=== PATIENT | female | born 1960 | race Caucasian/White ===

== ENCOUNTER 2018-11-04 11:56 | Inpatient (IN) | payer OTHER ==
[~2018-11-04] VITALS: Ht 162.6 cm; Wt 118.2 kg
--- NOTE | ~2018-11-04 | EKG ---
[place], [place] ELECTROCARDIOGRAM REPORT NAME: OSMAN BUTLER UNIT #: [id number] ROOM: 411 DOCTOR: PERLA DRAFT REPORT BIRTHDATE: [birth year] [facility] Test Date: 2018-11-04 Test Time: 12:24:00 Pat Name: OSMAN BUTLER Department: Room: 411 Gender: F Office Administrator: : 1960 Requested By: GREGORIO RAMÍREZ Order Number: [id number] Reading MD: Estrella Rausch MD Measurements Intervals [place] Rate: 73 P: -12 MN: 151 QRS: 13 QRSD: 93 T: 3 QT: 397 QTc: 438 Interpretive Statements Sinus rhythm Left ventricular hypertrophy Electronically Signed On 11-05-2018 11:30:49 PDT by Estrella Rausch MD CM:EKGRPT:ELECTROCARDIOGRAM REPORT [id number] GREGORIO ORTIZ DRAFT REPORT GREGORIO RAMÍREZ DO
[2018-11-04 11:56] VITALS: BP 131/77
[2018-11-04 12:17] LABS: BILIRUBIN NEGATIVE (NEGATIVE); BLOOD 3+ (NEGATIVE); CLARITY TURBID (CLEAR); COLOR YELLOW (YELLOW); GLUCOSE NEGATIVE (NEGATIVE); KETONE NEGATIVE (NEGATIVE); LEUKO ESTERASE 2+ (NEGATIVE); NITRITE NEGATIVE (NEGATIVE); SPECIFIC GRAVITY >= 1.030 (1.005-1.030); UROBILINOGEN 0.2 E.U./dl (0.2-1.0)
[2018-11-04 12:31] LABS: BASO % 0.2 % (0.0-1.0); EOS # 0.1 10*3/uL (0.0-0.4); HEMATOCRIT 35.6 % (37.0-47.0); HEMOGLOBIN 11.8 g/dl (12.0-16.0); LYMPH # 1.5 10*3/uL (1.3-4.4); LYMPH % 26.4 % (27.0-41.0); MEAN CELL VOLUME 92.7 fl (81.0-99.0); MEAN CORPUSCULAR HGB 30.7 pg (27.0-31.0); MEAN CORPUSCULAR HGB CONC 33.1 g/dl (33.0-37.0); MEAN PLATELET VOLUME 10.1 fl (9.6-12.3); MONO # 0.4 10*3/uL (0.1-1.0); MONO % 7.1 % (3.0-9.0); NEUT # 3.5 10*3/uL (2.3-7.9); NEUT % 64.1 % (47.0-73.0); PLATELET COUNT AUTOMATED 180 10*3/uL (130-400); RED BLOOD COUNT 3.84 10*6/uL (4.10-5.10); WHITE BLOOD COUNT 5.5 10*3/uL (4.8-10.8)
[2018-11-04 12:35] LABS: BACTERIA 4+; RBC TNTC rbc/hpf (0-2); WBC TNTC wbc/hpf (0-5)
[2018-11-04 12:47] LABS: ACT PARTIAL THROMBO TIME 25.4 SECONDS (20.0-32.1); INTERNATIONAL NORM RATIO 0.9 (2.0-3.5)
[2018-11-04 12:49] LABS: ALBUMIN 3.7 gm/dl (3.1-4.5); ALKALINE PHOSPHATASE 113 U/L (45-117); BUN 15 mg/dl (7-24); CHLORIDE 110 mmol/L (98-107); CREATININE 0.72 mg/dL (0.55-1.02); LIPASE 81 U/L (73-393); POTASSIUM 3.1 mmol/L (3.5-5.1); SGOT/AST 15 IU/L (3-35); SGPT/ALT 17 U/L (12-78); SODIUM 145 mmol/L (136-145); TOTAL PROTEIN 7.1 gm/dL (6.4-8.2)
[2018-11-04 12:52] LABS: TROPONIN I < 0.015 ng/ml (<0.045)
--- NOTE | 2018-11-04 13:32 | NUR ---
THE PHENERGAN HAS HELPED WITH THE PATIENTS NAUSEA
--- NOTE | 2018-11-04 14:08 | NUR ---
THE PATIENT HAS NOT HAD AN EPISODE OF EMESIS SINCE ARRIVAL TO THE ED
[2018-11-04 14:17] VITALS: BP 130/76
--- NOTE | 2018-11-04 14:28 | NUR ---
THE RESIDENT IS IN THE ROOM AT THIS TIME
[2018-11-04 14:45] VITALS: BP 131/65
--- NOTE | 2018-11-04 14:45 | NUR ---
Time: 1444 A 58 year old FEMALE admitted to under services of LINDSAY DEAN DO, Pt. arrived via bed from ER. Chief complaint: C/O BURNING/FREQUENCY WITH URINATING, LOW BACK PAIN, AND NAUSEA/VOMITING X1 WK. DARRELL DOOLEY
[2018-11-04] MEDS ORDERED: ASMANEX220 MC1 INH (15:11)
[2018-11-04] MEDS ORDERED: PRAVACHOL80 M1 PO (15:12)
[2018-11-04] MEDS ORDERED: GABAPENTIN400 MG PO (15:12)
[2018-11-04] MEDS ORDERED: ACYCLOVIR400 MG PO (15:12)
[2018-11-04] MEDS ORDERED: WELLBUTRIN XL300 MG PO (15:15)
[2018-11-04] MEDS ORDERED: PHARMASSURE FO0.4 MG PO (15:15)
[2018-11-04] MEDS ORDERED: NORVASC5 MG PO (15:15)
[2018-11-04] MEDS ORDERED: PANTOPRAZOLE SO40 MG PO (15:15)
[2018-11-04] MEDS ORDERED: KLOR-CON 1010 ME1 PO (15:16)
[2018-11-04 16:00] VITALS: BP 123/72
--- NOTE | 2018-11-04 19:24 | NUR ---
PATIENT RESTING IN BED WITH NO NEEDS MADE. BED IN LOWEST POSITION, CALL LIGHT IN REACH
[2018-11-04 20:00] VITALS: BP 111/67
--- NOTE | 2018-11-04 21:53 | NUR ---
24 HR chart check completed.
[2018-11-05] VITALS: BP 109/52
--- NOTE | 2018-11-05 01:50 | NUR ---
PATIENT RESTING IN BED WITH NO S/S OF DISTRESS. NO NEEDS MADE. BED IN LOWEST POSITION, CALL LIGHT IN REACH
[2018-11-05 06:00] LABS: BUN 11 mg/dl (7-24); CHLORIDE 110 mmol/L (98-107); CHOLESTEROL 141 mg/dL (<200); CREATININE 0.58 mg/dL (0.55-1.02); PHOSPHOROUS 2.7 mg/dL (2.5-4.9); POTASSIUM 3.2 mmol/L (3.5-5.1); SODIUM 141 mmol/L (136-145); TRIGLYCERIDES 110 mg/dl (<150); VLDL CHOLESTEROL 22 mg/dL (6-40)
[2018-11-05 06:08] LABS: FREE T4 0.94 ng/dl (0.76-1.46); HDL CHOLESTEROL 50 mg/dl (40-60); LDL CHOLESTEROL 69 mg/dL (9-159); THYROID STIM HORMONE (HS) 0.958 uIU/ml (0.358-4.75)
[2018-11-05 06:20] LABS: BASO % 0.6 % (0.0-1.0); EOS # 0.1 10*3/uL (0.0-0.4); EOS % 1.5 % (1.0-4.0); HEMATOCRIT 34.4 % (37.0-47.0); HEMOGLOBIN 11.2 g/dl (12.0-16.0); LYMPH # 1.8 10*3/uL (1.3-4.4); LYMPH % 34.5 % (27.0-41.0); MEAN CELL VOLUME 92.7 fl (81.0-99.0); MEAN CORPUSCULAR HGB 30.2 pg (27.0-31.0); MEAN CORPUSCULAR HGB CONC 32.6 g/dl (33.0-37.0); MEAN PLATELET VOLUME 10.2 fl (9.6-12.3); MONO # 0.4 10*3/uL (0.1-1.0); MONO % 7.7 % (3.0-9.0); NEUT # 2.9 10*3/uL (2.3-7.9); NEUT % 55.5 % (47.0-73.0); PLATELET COUNT AUTOMATED 162 10*3/uL (130-400); RED BLOOD COUNT 3.71 10*6/uL (4.10-5.10); WHITE BLOOD COUNT 5.2 10*3/uL (4.8-10.8)
[2018-11-05 07:13] LABS: VITAMIN D, 25-HYDROXY 20.9 ng/mL (30-100)
[2018-11-05 08:00] VITALS: BP 134/69
[2018-11-05 12:00] VITALS: BP 136/81
--- NOTE | 2018-11-05 13:08 | NUR ---
[employer] in to talk to patient. Patient states lives at HOME with SON. There are NO steps in the home. Physician: NONE Pharmacy: [facility] Home health services: NONE Patient's level of ADLs: INDEPENDENT Patient has working utilities: YES DME: NONE Follow-up physician's appointment after d/c: PT STATES SHE JUST MOVED HERE AND DOES NOT HAVE A DOCTOR YET Does patient want to access PORTAL?: NO Discharge plan PT LIVES AT HOME WITH HER SON AND IS INDEPENDENT IN HER CARE. DENIES SHE WILL WILL HAVE ANY NEEDS ON DISCHARGE. WILL CONTINUE TO FOLLOW. WILL HAVE A RIDE HOME PER PT. . HAMIDA METZGER
[2018-11-05 16:00] VITALS: BP 121/75
--- NOTE | 2018-11-05 19:28 | NUR ---
PATIENT RESTING IN BED WITH NO NEEDS MADE. DENIES PAIN AT THIS TIME. BED IN LOWEST POSITION, CALL LIGHT IN REACH
[2018-11-05 20:00] VITALS: BP 136/98
[2018-11-06] VITALS: BP 123/79
--- NOTE | 2018-11-06 00:16 | NUR ---
MEDICATED WTH PRN TYLENOL FOR C/O HEADACHE RATED 6/10 ON A 0/10 PAIN SCALE. WILL MONITOR
--- NOTE | 2018-11-06 01:42 | NUR ---
24 HR chart check completed.
[2018-11-06 08:00] VITALS: BP 108/58
[2018-11-06] MEDS ORDERED: AMINOPHYLLIN200 MG PO (08:49)
[2018-11-06] MEDS ORDERED: VITAMIN D50000 UNIT PO (09:55)
--- NOTE | 2018-11-06 10:01 | NUR ---
Discharge instructions reviewed with patient/family. Patient receptive and verbalizes understanding. Follow-up care arranged. Written instructions given to patient/family. HANNAH WARREN
== END 2018-11-06 10:01 | disposition home or self-care (01) | DRG 690 ==
LOC: ED 11:56 → 4E 14:10 → EDHOLD 14:10 → 4E 14:20
PROVIDERS: Emergency Medicine; Internal Medicine; ADMIT Internal Medicine
DX: N39.0 Urinary tract infection, site not specified (principal); N82.3 Fistula of vagina to large intestine; Z68.43 Body mass index [BMI] 50.0-59.9, adult; M47.812 Spondylosis without myelopathy or radiculopathy, cervical region; B02.9 Zoster without complications; R79.82 Elevated C-reactive protein (CRP); J45.909 Unspecified asthma, uncomplicated; E87.6 Hypokalemia; G89.29 Other chronic pain; E53.8 Deficiency of other specified B group vitamins; K21.9 Gastro-esophageal reflux disease without esophagitis; E87.8 Other disorders of electrolyte and fluid balance, not elsewhere classified; B96.20 Unspecified Escherichia coli [E. coli] as the cause of diseases classified elsewhere; D64.9 Anemia, unspecified; D72.810 Lymphocytopenia; K57.90 Diverticulosis of intestine, part unspecified, without perforation or abscess without bleeding; E66.01 Morbid (severe) obesity due to excess calories; I10 Essential (primary) hypertension; E78.5 Hyperlipidemia, unspecified; F41.9 Anxiety disorder, unspecified; F32.9 Major depressive disorder, single episode, unspecified; Z88.2 Allergy status to sulfonamides; Z91.040 Latex allergy status; Z91.013 Allergy to seafood; Z91.09 Other allergy status, other than to drugs and biological substances; Z90.49 Acquired absence of other specified parts of digestive tract; Z83.3 Family history of diabetes mellitus; Z87.440 Personal history of urinary (tract) infections; Z87.442 Personal history of urinary calculi; Z80.0 Family history of malignant neoplasm of digestive organs; Z83.79 Family history of other diseases of the digestive system; Z79.899 Other long term (current) drug therapy

== ENCOUNTER → 2019-01-12 | Outpatient (CLI) | payer OTHER ==
[~2019-01-12] MED LIST: ACYCLOVIR400 MG PO; AMINOPHYLLIN200 MG PO; ASMANEX220 MC1 INH; GABAPENTIN400 MG PO; KLOR-CON 1010 ME1 PO; NORVASC5 MG PO; PANTOPRAZOLE SO40 MG PO; PHARMASSURE FO0.4 MG PO; PRAVACHOL80 M1 PO; VITAMIN D50000 UNIT PO; WELLBUTRIN XL300 MG PO
== END | disposition home or self-care (01) ==
LOC: CARD 10:14
DX: I11.9 Hypertensive heart disease without heart failure (principal)

== ENCOUNTER → 2019-06-01 | Outpatient (CLI) | payer OTHER | END | disposition home or self-care (01) | LOC: US 13:12 | DX: I10 Essential (primary) hypertension (principal); R42 Dizziness and giddiness ==

== ENCOUNTER → 2019-06-15 | Outpatient (CLI) | payer OTHER | END | disposition home or self-care (01) | LOC: RAD 15:37 | DX: R05 Cough (principal); R06.02 Shortness of breath; R06.2 Wheezing ==

== ENCOUNTER 2019-12-26 18:05 | Emergency (ER) | payer OTHER ==
[~2019-12-26] VITALS: Ht 160 cm; Wt 105.2 kg
[2019-12-26 18:52] LABS: BILIRUBIN NEGATIVE; CLARITY TURBID (CLEAR); COLOR YELLOW (YELLOW); GLUCOSE NEGATIVE; KETONE NEGATIVE
[2019-12-26 18:53] LABS: BACTERIA 3+; BLOOD 3+ (NEGATIVE); LEUKO ESTERASE 3+ (NEGATIVE); NITRITE POSITIVE (NEGATIVE); PH 5.5 (4.5-8.0); RBC TNTC rbc/hpf (0-2); SPECIFIC GRAVITY 1.025 (1.001-1.030); WBC TNTC wbc/hpf (0-5)
[2019-12-26] MEDS ORDERED: PYRIDIUM200 M1 PO (19:26)
[2019-12-26] MEDS ORDERED: CEPHALEXIN500 M1 PO (19:26)
== END 2019-12-26 19:34 | disposition home or self-care (01) ==
LOC: ED 18:05
PROVIDERS: Emergency Medicine
DX: N39.0 Urinary tract infection, site not specified (principal); F41.9 Anxiety disorder, unspecified; J45.909 Unspecified asthma, uncomplicated; I10 Essential (primary) hypertension; K21.9 Gastro-esophageal reflux disease without esophagitis; E78.5 Hyperlipidemia, unspecified; Z79.899 Other long term (current) drug therapy

== ENCOUNTER → 2020-01-15 | Outpatient (CLI) | payer OTHER ==
[~2020-01-15] MED LIST changes: +CEPHALEXIN500 M1 PO; +PYRIDIUM200 M1 PO
[2020-01-15 12:50] LABS: BASO % 0.2 % (0.0-1.0); EOS # 0.1 10*3/uL (0.0-0.4); EOS % 2.4 % (1.0-4.0); HEMATOCRIT 37.5 % (37.0-47.0); LYMPH # 2.1 10*3/uL (1.3-4.4); LYMPH % 39.2 % (27.0-41.0); MEAN CELL VOLUME 91.2 fl (81.0-99.0); MEAN CORPUSCULAR HGB 29.7 pg (27.0-31.0); MEAN CORPUSCULAR HGB CONC 32.5 g/dl (33.0-37.0); MEAN PLATELET VOLUME 9.4 fl (9.6-12.3); MONO # 0.4 10*3/uL (0.1-1.0); MONO % 7.3 % (3.0-9.0); NEUT # 2.7 10*3/uL (2.3-7.9); NEUT % 50.9 % (47.0-73.0); PLATELET COUNT AUTOMATED 218 10*3/uL (130-400); RED BLOOD COUNT 4.11 10*6/uL (4.10-5.10); RED CELL DISTRI WIDTH 12.7 % (0-14.5); WHITE BLOOD COUNT 5.3 10*3/uL (4.8-10.8)
[2020-01-15 13:37] LABS: ALBUMIN 3.5 gm/dl (3.1-4.5); ALKALINE PHOSPHATASE 127 U/L (45-117); BUN 14 mg/dl (7-24); CHLORIDE 108 mmol/L (98-107); CHOLESTEROL 189 mg/dL (<200); CREATININE 0.71 mg/dL (0.55-1.02); HDL CHOLESTEROL 44 mg/dl (40-60); LDL CHOLESTEROL 102 mg/dL (9-159); SGOT/AST 10 IU/L (3-35); SGPT/ALT 16 U/L (12-78); SODIUM 142 mmol/L (136-145); TOTAL PROTEIN 7.4 gm/dL (6.4-8.2); TRIGLYCERIDES 214 mg/dl (<150); VLDL CHOLESTEROL 43 mg/dL (6-40)
[2020-01-15 13:44] LABS: VITAMIN D, 25-HYDROXY 26.8 ng/mL (30-100)
== END | disposition home or self-care (01) ==
LOC: LAB 12:32
PROVIDERS: ATTEND Nurse Practitioner Family
DX: I10 Essential (primary) hypertension (principal); E78.5 Hyperlipidemia, unspecified; E53.8 Deficiency of other specified B group vitamins; E55.9 Vitamin D deficiency, unspecified

== ENCOUNTER → 2020-09-17 | Outpatient (CLI) | payer OTHER | END | disposition home or self-care (01) | LOC: MRI 08:44 | PROVIDERS: ATTEND Nurse Practitioner Family | DX: M51.36 Other intervertebral disc degeneration, lumbar region (principal); M47.816 Spondylosis without myelopathy or radiculopathy, lumbar region; M48.062 Spinal stenosis, lumbar region with neurogenic claudication; M51.26 Other intervertebral disc displacement, lumbar region ==

== ENCOUNTER → 2020-09-19 | Outpatient (CLI) | payer OTHER | END | disposition home or self-care (01) | LOC: CT 00:44 | PROVIDERS: ATTEND Nurse Practitioner Family | DX: N20.0 Calculus of kidney (principal); N28.1 Cyst of kidney, acquired; K57.30 Diverticulosis of large intestine without perforation or abscess without bleeding; R31.9 Hematuria, unspecified; Z90.49 Acquired absence of other specified parts of digestive tract ==

== ENCOUNTER → 2021-01-08 | Outpatient (CLI) | payer OTHER ==
[2021-01-08 10:48] LABS: BASO % 0.3 % (0.0-1.0); EOS # 0.1 10*3/uL (0.0-0.4); EOS % 0.7 % (1.0-4.0); HEMATOCRIT 37.8 % (37.0-47.0); LYMPH # 2.3 10*3/uL (1.3-4.4); LYMPH % 30.1 % (27.0-41.0); MEAN CELL VOLUME 90.6 fl (81.0-99.0); MEAN CORPUSCULAR HGB CONC 33.1 g/dl (33.0-37.0); MEAN PLATELET VOLUME 9.5 fl (9.6-12.3); MONO # 0.5 10*3/uL (0.1-1.0); MONO % 6.5 % (3.0-9.0); NEUT # 4.8 10*3/uL (2.3-7.9); NEUT % 62.1 % (47.0-73.0); PLATELET COUNT AUTOMATED 197 10*3/uL (130-400); RED BLOOD COUNT 4.17 10*6/uL (4.10-5.10); RED CELL DISTRI WIDTH 13.7 % (0-14.5); WHITE BLOOD COUNT 7.6 10*3/uL (4.8-10.8)
[2021-01-08 10:59] LABS: INTERNATIONAL NORM RATIO 0.9 (2.0-3.5)
[2021-01-08 11:17] LABS: ALBUMIN 3.4 gm/dl (3.1-4.5); ALKALINE PHOSPHATASE 113 U/L (45-117); BUN 14 mg/dl (7-24); CHLORIDE 107 mmol/L (98-107); CREATININE 0.67 mg/dL (0.55-1.02); POTASSIUM 3.6 mmol/L (3.5-5.1); SGOT/AST 9 IU/L (3-35); SGPT/ALT 16 U/L (12-78); SODIUM 142 mmol/L (136-145); TOTAL PROTEIN 7.2 gm/dL (6.4-8.2)
== END | disposition home or self-care (01) ==
LOC: LAB 10:33
PROVIDERS: ATTEND Nurse Practitioner
DX: K74.00 Hepatic fibrosis, unspecified (principal); K76.0 Fatty (change of) liver, not elsewhere classified; J45.909 Unspecified asthma, uncomplicated; K57.32 Diverticulitis of large intestine without perforation or abscess without bleeding; I85.00 Esophageal varices without bleeding; Z80.0 Family history of malignant neoplasm of digestive organs; Z68.41 Body mass index [BMI] 40.0-44.9, adult

== ENCOUNTER → 2021-03-04 | Outpatient (CLI) | payer OTHER | END | disposition home or self-care (01) | LOC: MAMMO 12:38 → US 13:30 | PROVIDERS: ATTEND Nurse Practitioner Family | DX: Z12.31 Encounter for screening mammogram for malignant neoplasm of breast (principal); R94.31 Abnormal electrocardiogram [ECG] [EKG]; I10 Essential (primary) hypertension; D64.9 Anemia, unspecified; R55 Syncope and collapse ==

== ENCOUNTER → 2021-04-17 | Outpatient (CLI) | payer OTHER | LOC: CT 08:38 | PROVIDERS: ATTEND Nurse Practitioner Family | DX: R55 Syncope and collapse (principal); R42 Dizziness and giddiness; G44.52 New daily persistent headache (NDPH) ==

== ENCOUNTER → 2021-04-30 | Outpatient (CLI) | payer OTHER | END | disposition home or self-care (01) | LOC: CT 12:51 | PROVIDERS: ATTEND Nurse Practitioner Family | DX: N20.0 Calculus of kidney (principal); N30.91 Cystitis, unspecified with hematuria; R31.9 Hematuria, unspecified; K57.30 Diverticulosis of large intestine without perforation or abscess without bleeding; K43.9 Ventral hernia without obstruction or gangrene; Z87.442 Personal history of urinary calculi ==

== ENCOUNTER → 2021-05-23 | Outpatient (CLI) | payer OTHER ==
[~2021-05-23] MED LIST changes: +CETIRIZINE10 MG PO; +CYCLOBENZAPRINE10 MG PO; +FLONASE ALLERG9.9 ML NAS; +FLOVENT HFA12 G1 MM; +LEXAPRO10 MG PO; +MOBIC15 MG PO; +MONTELUKAST SOD10 MG PO
== END | disposition home or self-care (01) ==
LOC: CARD 05-09 00:04
PROVIDERS: ATTEND Registered Nurse
DX: R00.0 Tachycardia, unspecified (principal); I10 Essential (primary) hypertension; E66.01 Morbid (severe) obesity due to excess calories; I20.0 Unstable angina; R55 Syncope and collapse; R42 Dizziness and giddiness; R00.2 Palpitations; Z82.49 Family history of ischemic heart disease and other diseases of the circulatory system

== ENCOUNTER → 2021-08-22 | Outpatient (CLI) | payer OTHER | END | disposition home or self-care (01) | LOC: US 13:00 | PROVIDERS: ATTEND Nurse Practitioner Family | DX: I65.23 Occlusion and stenosis of bilateral carotid arteries (principal) ==

== ENCOUNTER → 2022-09-11 | Outpatient (CLI) | payer OTHER ==
[2022-09-11 10:12] LABS: BASO % 0.5 % (0.0-1.0); EOS # 0.1 10*3/uL (0.0-0.4); EOS % 1.6 % (1.0-4.0); HEMATOCRIT 38.4 % (37.0-47.0); LYMPH # 1.7 10*3/uL (1.3-4.4); LYMPH % 37.7 % (27.0-41.0); MEAN CELL VOLUME 92.5 fl (81.0-99.0); MEAN CORPUSCULAR HGB 31.1 pg (27.0-31.0); MEAN CORPUSCULAR HGB CONC 33.6 g/dl (33.0-37.0); MEAN PLATELET VOLUME 10.2 fl (9.6-12.3); MONO # 0.3 10*3/uL (0.1-1.0); MONO % 7.8 % (3.0-9.0); NEUT # 2.3 10*3/uL (2.3-7.9); NEUT % 52.4 % (47.0-73.0); PLATELET COUNT AUTOMATED 157 10*3/uL (130-400); RED BLOOD COUNT 4.15 10*6/uL (4.10-5.10); RED CELL DISTRI WIDTH 12.8 % (0-14.5); WHITE BLOOD COUNT 4.4 10*3/uL (4.8-10.8)
[2022-09-11 10:37] LABS: ALKALINE PHOSPHATASE 92 U/L (46-116); BUN 15 mg/dl (9-23); CHLORIDE 106 mmol/L (98-107); CHOLESTEROL 147 mg/dL (<200); LDL CHOLESTEROL 80 mg/dL (9-159); POTASSIUM 4.4 mmol/L (3.4-5.1); SGPT/ALT 17 U/L (10-49); TOTAL PROTEIN 7.1 gm/dL (6.0-8.0); TRIGLYCERIDES 137 mg/dl (<150)
[2022-09-11 10:53] LABS: VITAMIN D, 25-HYDROXY 51.7 ng/mL (30-100)
== END | disposition home or self-care (01) ==
LOC: LAB 09:37
PROVIDERS: ATTEND Nurse Practitioner Family
DX: I10 Essential (primary) hypertension (principal); E55.9 Vitamin D deficiency, unspecified; E53.8 Deficiency of other specified B group vitamins; E78.5 Hyperlipidemia, unspecified; E87.6 Hypokalemia; K75.81 Nonalcoholic steatohepatitis (NASH)

== ENCOUNTER → 2023-05-05 | Outpatient (CLI) | payer OTHER | END | disposition home or self-care (01) | LOC: RESCLI 01:27 | PROVIDERS: ATTEND Internal Medicine | DX: K76.0 Fatty (change of) liver, not elsewhere classified (principal); I10 Essential (primary) hypertension; J45.909 Unspecified asthma, uncomplicated; F32.9 Major depressive disorder, single episode, unspecified; F41.9 Anxiety disorder, unspecified; K21.9 Gastro-esophageal reflux disease without esophagitis; J45.901 Unspecified asthma with (acute) exacerbation; E78.5 Hyperlipidemia, unspecified; E55.9 Vitamin D deficiency, unspecified; E53.8 Deficiency of other specified B group vitamins; E87.6 Hypokalemia; Z82.49 Family history of ischemic heart disease and other diseases of the circulatory system; Z86.19 Personal history of other infectious and parasitic diseases; Z79.899 Other long term (current) drug therapy; Z88.8 Allergy status to other drugs, medicaments and biological substances ==

== ENCOUNTER → 2024-09-06 | Outpatient (CLI) | payer OTHER | END | disposition home or self-care (01) | LOC: RAD 16:10 | PROVIDERS: ATTEND Nurse Practitioner Primary Care | DX: M43.8X3 Other specified deforming dorsopathies, cervicothoracic region (principal); M48.03 Spinal stenosis, cervicothoracic region; M54.9 Dorsalgia, unspecified; M54.2 Cervicalgia; Z90.49 Acquired absence of other specified parts of digestive tract ==

== ENCOUNTER → 2024-11-25 | Outpatient (CLI) | payer OTHER ==
[2024-11-25 10:21] LABS: BASO # 0.0 10*3/uL (0.0-0.1); BASO % 0.5 % (0.0-1.0); EOS # 0.1 10*3/uL (0.0-0.4); EOS % 2.9 % (1.0-4.0); MEAN CELL VOLUME 93.7 fl (81.0-99.0); MEAN CORPUSCULAR HGB 30.7 pg (27.0-31.0); MEAN PLATELET VOLUME 9.9 fl (9.6-12.3); MONO # 0.3 10*3/uL (0.1-1.0); MONO % 8.8 % (3.0-9.0); NEUT # 1.7 10*3/uL (2.3-7.9); NEUT % 46.2 % (47.0-73.0); NUCLEATED RED BLOOD CELL 0.0 % (0.0-0.0); NUCLEATED RED BLOOD CELL 0.0 10*3/uL (0.0-0.0); PLATELET COUNT AUTOMATED 168 10*3/uL (130-400); RED CELL DISTRI WIDTH 12.8 % (0-14.5)
[2024-11-25 10:43] LABS: BUN 23 mg/dl (9-23); LDL CHOLESTEROL 77 mg/dL (9-159); SGPT/ALT 12 U/L (5-49)
[2024-11-25 11:03] LABS: FREE T4 0.93 ng/dl (0.89-1.76)
[2024-11-25 11:16] LABS: VITAMIN D, 25-HYDROXY 69.7 ng/mL (30-100)
== END | disposition home or self-care (01) ==
LOC: LAB 09:37
PROVIDERS: Registered Nurse; ATTEND Nurse Practitioner Primary Care
DX: K76.0 Fatty (change of) liver, not elsewhere classified (principal); E03.9 Hypothyroidism, unspecified; E55.9 Vitamin D deficiency, unspecified; Z79.899 Other long term (current) drug therapy

== ENCOUNTER → 2024-12-09 | Outpatient (CLI) | payer OTHER | END | disposition home or self-care (01) | LOC: LAB 00:34 | PROVIDERS: ATTEND Registered Nurse | DX: E53.8 Deficiency of other specified B group vitamins (principal); E78.5 Hyperlipidemia, unspecified; E51.9 Thiamine deficiency, unspecified; E56.9 Vitamin deficiency, unspecified; E55.9 Vitamin D deficiency, unspecified; K63.9 Disease of intestine, unspecified; E61.1 Iron deficiency; R53.83 Other fatigue; R73.9 Hyperglycemia, unspecified ==